=== PATIENT | female | born 1995 | race African-American/Black ===

== ENCOUNTER 2023-11-18 16:19 | Emergency (ER) | payer MEDICAID ==
[~2023-11-18] VITALS: Ht 162.6 cm; Wt 60.2 kg
[2023-11-18] MEDS ORDERED: methylPREDNISolone SOD SUCC 125 MG/2 ML VL IM ONE (18:45)
[2023-11-18] MEDS ORDERED: IPRATROPIUM BROM 0.5 MG/2.5ML INH SOL NEB ONE (18:45)
[2023-11-18] MEDS ORDERED: ALBUTEROL SULF 2.5 MG/0.5ML(0.5%) NEB SOLN NEB ONE (18:45)
[2023-11-18] MEDS ORDERED: ALBU108A5 IN (19:19)
[2023-11-18] MEDS ORDERED: PRED20TA2 PO (19:19)
[2023-11-18] MEDS ORDERED: AMOX500C2 PO (19:19)
[2023-11-18] MEDS ORDERED: BENZ200C64 PO (19:19)
[2023-11-18] MEDS ORDERED: ALBU1.258 IN (19:20)
[2023-11-18 19:50] VITALS: BP 104/62; PULSE 121; RESP 16; O2SAT 98
== END 2023-11-18 20:12 | disposition home or self-care (01) ==
LOC: ER 16:19
DX: J45.909 Unspecified asthma, uncomplicated (principal); Z76.0 Encounter for issue of repeat prescription
CPT/HCPCS: 94640; 96372; 99283; J2930; J7644

== ENCOUNTER 2024-10-30 10:57 | Emergency (ER) | payer MEDICAID ==
[~2024-10-30] VITALS: Ht 160 cm; Wt 74.6 kg
[~2024-10-30 10:57] MED LIST: ALBU1.258 IN; ALBU108A5 IN; AMOX500C2 PO; BENZ200C64 PO; PRED20TA2 PO
--- NOTE | 2024-10-30 13:18 | ED.PDOC ---
History of Present Illness HPI Comments 29 year old female presents to the ED with chief complaints of cough and right arm pain. Patient reports that she has been experiencing an intermittent cough for a few days along with associated right arm pain and stiffness since yesterday. Patient relays that she is now unable to raise or bend her arm witho ut pain. Patient denies any fall, injury, chest pain, SOB, dizziness, fever, or chills. Chief Complaint: Cough Time Seen by MD: 13:16 Reviewed Notes: Nurses Notes, Medications, Allergies Allergies: Coded Allergies: NO KNOWN ALLERGIES (Unverified , 11/18/23) Home Meds Active Scripts Albuterol Sulfate (Albuterol Sulfate) 1.25 Mg/3 Ml Neb, 1.25 MG IN Q6HPRN PRN, #25 EA As needed for asthma attack Prov:WALDRONJONELMyles Q [employer] 11/18/23 Benzonatate (Benzonatate) 200 Mg Cap, 1 CAP PO TID, #30 CAP As needed for cough Prov:VANITAJONELMyles [employer] 11/18/23 Prednisone (Prednisone) 20 Mg Tab, 1 TAB PO BID for 5 Days, #10 TAB Start tomorrow with food Prov:WALDRONJONELA [employer] 11/18/23 Albuterol Sulfate (Albuterol Sulfate Hfa) 108 Mcg/Act Aer, 1 PUFF IN Q4HPRN PRN, #1 AER As needed for shortness of breath or wheezing Prov:WALDRONJONELA [employer] 11/18/23 Amoxicillin Trihydrate (Amoxicillin) 500 Mg Cap, 1 CAP PO TID for 10 Days, #30 CAP Prov:JONEL WALDRONA [employer] 11/18/23 Information Source: Patient Mode of Arrival: Ambulatory Severity: Moderate Timing: Days Duration: Since onset Prehospital treatment: None Past Medical History PAST MEDICAL HISTORY: Asthma Surgical History: Denies all surgeries [employer] RUNNER History: Denies all 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 RUNNER Hx Family History Family History: Reviewed,noncontributory to illness Social History Smoker: Non-Smoker Alcohol: Denies ETOH Use Drugs: Denies Drug Use Lives In: Home Constitutional: denies: chills, diaphoresis, fatigue, fever, malaise, sweats, weakness, others EENTM: denies: blurred vision, double vision, ear bleeding, ear discharge, ear drainage, ear pain, ear ringing, eye pain, eye redness, hearing loss, mouth pain, mouth swelling, nasal discharge, nose bleeding, nose congestion, nose pain, photophobia, tearing, throat pain, throat swelling, voice changes, others Respiratory: reports: cough; denies: hemoptysis, orthopnea, SOB at rest, shortness of breath, SOB with excertion, stridor, wheezing, others Cardiovascular: denies: chest pain, dizzy spells, diaphoresis, Dyspnea on exertion, edema, irregular heart beat, left arm pain, lightheadedness, palpitations, PND, syncope, others Gastrointestinal: denies: abdomen distended, abdominal pain, blood streaked bowels, constipated, diarrhea, dysphagia, difficulty swallowing, hematemesis, melena, nausea, poor appetite, poor fluid intake, rectal bleeding, rectal pain, vomiting, others Genitourinary: denies: abnormal vagina bleeding, burning, dyspareunia, dysuria, flank pain, frequency, hematuria, incontinence, pain, , vagina discharge, urgency, others Neurological: denies: dizziness, fainting, headache, left sided numbness, left sided weakness, numbness, paresthesia, pre-existing deficit, right sided numbness, right sided weakness, seizure, speech problems, tingling, tremors, weakness, others Musculoskeletal: reports: others (Rt arm pain and stiffness); denies: back pain, gout, joint pain, joint swelling, muscle pain, muscle stiffness, neck pain Integumetry: denies: bruises, change in color, change in hair/nails, dryness, laceration, lesions, lumps, rash, wounds, others Allergic/Immunocompromised: denies: Difficulty Healing, Frequent Infections, Hives, Itching, others Hematologic/Lymphatic: denies: anemia, blood clots, easy bleeding, easy bruising, swollen glands, others Endocrine: denies: excessive hunger, excessive sweating, excessive thirst, excessive urination, flushing, intolerance to cold, intolerance to heat, unexplained weight gain, unexplained weight loss, others Psychiatric: denies: anxiety, bipolar disorder, depression, hopeless, panic disorder, schizophrenia, sleepless, suicidal, others All Other Systems: Reviewed and Negative Physical Exam General Appearance: Moderate Distress, Normal HEENT: Normal ENT Inspection, PERRL/EOMI Neck: Full Range of Motion, Non-Tender, Normal, Normal Inspection Respiratory: Chest Non-Tender, Lungs Clear, No Accessory Muscle Use, No Respiratory Distress, Normal Breath Sounds Cardiovascular: No Edema, No JVD, No Murmur, No Gallop, Normal Peripheral Pulses, Regular Rate/Rhythm Breast Exam: Deferred Gastrointestinal: No Organomegaly, Non Tender, No Pulsatile Mass, Normal Bowel Sounds, Soft Genitalia: Deferred Pelvic: Deferred Rectal: Deferred Extremities: Decreased range of motion (Right upper extremity), No calf tenderness, Normal capillary refill, Non-tender, No pedal edema Musculoskeletal : Apperance: Normal Neurologic: Alert, marketing programs manager II-XII nml as Tested, No Motor Deficits, Normal Affect, Normal Mood, No Sensory Deficits Cerebellar Function: Normal Reflexes: Normal Skin: Dry, Normal Color, Warm Peripheral Pulses: 3+ Radial (R), 3+ Radial (L) Lymphatic: No Adenopathy Was a procedure done? Was a procedure done?: No Differential Dx Considerations may include: Rotator cuff Upper respiratory tract infection X-Ray, Labs, Meds, VS Vital Signs Date Time Temp Pulse Resp B/P (MAP) Pulse Ox O2 Delivery O2 Flow Rate FiO2 10/30/24 13:57 98.0 84 18 104/75 (85) 100 98.0 10/30/24 13:57 84 18 100 Room Air 10/30/24 11:06 97.9 91 18 112/74 (87) 100 Rt Shoulder XR: FINDINGS/IMPRESSION: There is no evidence of acute fracture or dislocation. Grade 3 AC separation on the right correlate for tenderness in this area. The visualized joint space is well maintained. The alignment is anatomical. There is no radiopaque foreign body. HS:Y Chest XR: FINDINGS: Lines and Tubes: None Lungs: No focal consolidation. Pleura: No effusion. No pneumothorax. Cardiomediastinal contours: Unremarkable Bones: No acute osseous abnormality. IMPRESSION: No acute cardiopulmonary disease. Patient alert. Does have good range of moment of upper extremity. Completely able to move her right shoulder. Vitals stable. X-ray does show no acute process. Chronic. AC joint. Placed in a sling. Chest x-ray reviewed does not show any acute process. Possible bronchitis. Was given Motrin amoxicillin antibiotic. Reviewed her history pain Explained to her the treatment plan for AC joint. Told to follow up with her orthopedic surgeon. Was told to follow up with her primary care physician. Was told to come back if there is any problem. Time of 1ST Reevaluation: 14:16 Reevaluation 1ST: Unchanged Time of 2ND Reevaluation: 16:27 Reevaluation 2ND: Improved Patient Education/Counseling: Diagnosis, Treatment Family Education/Counseling: No Family Present Additional Information I reviewed the following notes from patient's past medical encounters: 11/18/23 for asthmatic bronchitis. The following tests were ordered, and results were reviewed by me: Chest XR, Rt Shoulder XR I reviewed and agreed with the following test results read by other providers: C hest XR, Rt Shoulder XR I discussed treatment and results with medical personnel. Departure 1 Departure Time of Disposition: 16:29 Impression: Primary Impression: AC separation Qualified Codes: S43.101A - Unspecified dislocation of right acromioclavicular joint, initial encounter Additional Impression: Asthmatic bronchitis Qualified Codes: J45.20 - Mild intermittent asthma, uncomplicated Disposition: 01 HOME / SELF CARE / HOMELESS Condition: Good e-Prescriptions Ibuprofen Micronized (MOTRIN TABLET) 600 Mg Tb 600 MG PO TID PRN for 3 Days, #9 TAB *Black box warning-NSAIDS can increase risk of NC & hypertension, GI irritation, ulceration, bleed, perferation. Do not use post cardiac surgery. Use short duration/lowest effective dose. Prov: ALEXIS DE JESUS MD 10/30/24 Amoxicillin Trihydrate (Amoxicillin) 500 Mg Cap 1 CAP PO TID for 5 Days, #15 CAP Prov: ALEXIS DE JESUS MD 10/30/24 Discharged With: Self Critical Care Note Critical Care Time?: No Stability Stability form required: No Heart Score Heart Score: Heart Score Response (Comments) Value History N/A 0 EKG N/A 0 Age N/A 0 Risk Factors N/A 0 Troponin N/A 0 Total 0 I personally scribed for ALEXIS DE JESUS MD ([email or web address]) on 10/30/24 at 13:18. Electronically submitted by Zain Bee ([email or web address]). I personally scribed for ALEXIS DE JESUS MD ([email or web address]) on 10/30/24 at 13:19. Electronically submitted by Zain Bee ([email or web address]). I personally scribed for ALEXIS DE JESUS MD ([email or web address]) on 10/30/24 at 14:42. Electronically submitted by Zain Bee ([email or web address]). ALEXIS DE JESUS MD Oct 30, 2024 13:18
[2024-10-30 13:57] VITALS: BP 104/75; PULSE 84; RESP 18; TEMP 98; O2SAT 100
--- NOTE | 2024-10-30 13:57 | DVH ---
CHEST RADIOGRAPH Indication: cough Technique: Single frontal view of the chest was obtained Comparison: None FINDINGS: Lines and Tubes: None Lungs: No focal consolidation. Pleura: No effusion. No pneumothorax. Cardiomediastinal contours: Unremarkable Bones: No acute osseous abnormality. IMPRESSION: No acute cardiopulmonary disease.
--- NOTE | 2024-10-30 13:58 | DVH ---
CLINICAL INDICATION: pain TECHNIQUE: 3 radiographic views of the right shoulder were obtained. Comparison: None FINDINGS/IMPRESSION: There is no evidence of acute fracture or dislocation. Grade 3 AC separation on the right correlate for tenderness in this area. The visualized joint space is well maintained. The alignment is anatomical. There is no radiopaque foreign body. HS:Y
[2024-10-30] MEDS ORDERED: AMOX500C2 PO (16:31)
[2024-10-30] MEDS ORDERED: IBU600T PO (16:31)
[2024-10-30] MEDS: HYDROcodone-ACET 5/325MG TAB PO ONE (16:42)
== END 2024-10-30 17:08 | disposition home or self-care (01) ==
LOC: ER 10:57
DX: S43.101A Unspecified dislocation of right acromioclavicular joint, initial encounter (principal); J45.909 Unspecified asthma, uncomplicated; Z79.899 Other long term (current) drug therapy; X58.XXXA Exposure to other specified factors, initial encounter; Y93.89 Activity, other specified; Y92.89 Other specified places as the place of occurrence of the external cause; Y99.8 Other external cause status
CPT/HCPCS: 71045; 73020